=== PATIENT | male | born 1990 | race Caucasian/White ===

== ENCOUNTER 2017-01-15 19:33 | Emergency (ER) | payer BC ==
[2017-01-15 19:39] VITALS: BP 136/88; PULSE 77; RESP 16; TEMP 98.7
[2017-01-15] MEDS ORDERED: IBUPROFEN 600 MG STARTER PACK 4 TAB BTL PO STA (20:20)
--- NOTE | 2017-01-15 20:22 | ED ---
General Adult HPI - General Chief complaint: Extremity Injury, Upper Stated complaint: R side pain Time Seen by Provider: 01/15/17 20:12 Source: patient Mode of arrival: wheelchair Limitations: no limitations - History of Present Illness Initial comments: 26-year-old male patient presents to emergency department today for complaints of right upper arm pain. Patient states that he took a nap this evening, went to adjust himself and felt a sharp pain in his right upper arm. Patient states that he has been playing tennis frequently over the last couple of weeks. States that this is a new sport for him. Patient states he has significant increase in pain with abduction of the arm and any other movements. He states the pain is at 2/10 at rest and increases to a 7/10 with any movement. States the pain is sharp. He denies any numbness or tingling. Denies any known injury. Denies any previous injury to the arm.Patient denies any headache, neck pain, back pain, chest pain, shortness of breath, dizziness, weakness, abdominal pain, nausea, vomiting, or difficulties with bowel movements or urination. - Related Data Previous Rx's Medication Instructions Recorded Ibuprofen 800 mg PO TID PRN #30 tablet 01/15/17 Allergies Allergy/AdvReac Type Severity Reaction Status Date / Time No Known Allergies Allergy Verified 01/15/17 19:39 Review of Systems ROS Statement: Those systems with pertinent positive or pertinent negative responses have been documented in the HPI. ROS Other: All systems not noted in ROS Statement are negative. Past Medical History Past Medical History: No Reported History History of Any Multi-Drug Resistant Organisms: None Reported Past Surgical History: Hernia Repair Past Psychological History: No Psychological Hx Reported Smoking Status: Never smoker Past Alcohol Use History: None Reported Past Drug Use History: Marijuana General Exam Limitations: no limitations General appearance: alert, in no apparent distress, other (Physical well- developed, well-nourished adult male patient in no acute distress. Vital signs upon presentation temperature 98.7F, pulse 77, respirations 16, blood pressure 136/88, pulse ox 100% on room air.) Neck exam: Present: normal inspection, full ROM. Absent: tenderness, meningismus, lymphadenopathy Respiratory exam: Present: normal lung sounds bilaterally. Absent: respiratory distress, wheezes, rales, rhonchi, stridor Cardiovascular Exam: Present: regular rate, normal rhythm, normal heart sounds. Absent: systolic murmur, diastolic murmur, rubs, gallop, clicks Extremities exam: Present: normal inspection, normal capillary refill, other ( Skin to the right upper extremity is pink, warm, and dry. Cap refill is less than 3 seconds. Radial pulse is present and 2+.). Absent: full ROM (Full range of motion however increased pain with abduction, and forward flexion.), tenderness, pedal edema, joint swelling, calf tenderness Back exam: Present: normal inspection. Absent: tenderness, vertebral tenderness Neurological exam: Present: alert, oriented X3, CN II-XII intact Psychiatric exam: Present: normal affect, normal mood Skin exam: Present: warm, dry, intact, normal color. Absent: rash Course Vital Signs 01/15/17 19:37 Temperature 98.7 F Pulse Rate 77 Respiratory 16 Rate Blood Pressure 136/88 O2 Sat by Pulse 100 Oximetry Medical Decision Making - Medical Decision Making 26-year-old male patient presented for evaluation of right upper arm pain. Physical exam was unremarkable. Patient does have increased pain with movement of the shoulder. No shoulder bony tenderness. He did report that he isn't playing tennis frequently over the last couple of weeks which is a new sport for him. Pain is consistent with musculoskeletal injury. He is instructed to take ibuprofen 3 times daily, he will be given a prescription for this. He is instructed to apply warm moist heat to the area. He is instructed to do gentle range of motion exercises. He is instructed to follow-up with his primary care physician for recheck in 1-2 days. He is instructed to return here immediately for any new, worsening, or concerning symptoms. He verbalizes understanding and agrees with this plan. Disposition Clinical Impression: Muscle strain, upper arm Disposition: HOME SELF-CARE Condition: Good Instructions: Muscle Strain (ED) Additional Instructions: Apply warm moist heat to the right upper arm 20 minutes at a time at least 4 times per day. Take anti-inflammatories as directed. Follow up with her primary care physician or orthopedics if symptoms persist beyond 7-10 days. Return here immediately for any new, worsening, or concerning symptoms. Prescriptions: Ibuprofen 800 mg PO TID PRN #30 tablet PRN Reason: Pain Referrals: None,Stated [Primary Care Provider] - 1-2 days Frantz Olson MD [STAFF PHYSICIAN] - 1-2 days Time of Disposition: 20:22
== END 2017-01-15 20:35 | disposition home or self-care (01) ==
LOC: EC 19:33
DX: S46.911A Strain of unspecified muscle, fascia and tendon at shoulder and upper arm level, right arm, initial encounter (principal)
CPT/HCPCS: 99283

== ENCOUNTER → 2018-03-14 | Outpatient (CLI) | payer BC ==
--- NOTE | 2018-03-14 13:38 | EST ---
EXERCISE STRESS DATE OF SERVICE: 03/14/2018 AGE: 27 SEX: Male HT: 68 WT: 189 PROTOCOL: Harpreet STAGE: IV DURATION OF EXERCISE: 11 minutes 30 seconds HEART RATE REST: 75 BLOOD PRESSURE REST: 140/84 MAXIMUM HEART RATE ACHIEVED: 165 MAXIMUM BLOOD PRESSURE: 142/81 85% MPHR: 162 100% MPHR: 191 METS: 12.1 INDICATIONS: Family history. CLINICAL INFORMATION: Baseline rhythm is sinus mechanism, rate of 75, RSR prime, poor R progression. Baseline blood pressure 140/84 mmHg. Patient exercised on Harpreet protocol for 11 minutes 30 seconds reaching a peak rate of 165 beats per minute which is equal to 86% maximum predicted heart rate. Peak blood pressure 142/81 mmHg. Test was terminated secondary to fatigue. There is no chest pain. Electrocardiograph monitoring revealed no evidence of diagnostic ischemic ST deviation. CONCLUSION: 1. Good exercise tolerance with normal electrocardiograph response to exercise. 2. No evidence of arrhythmia. MMODL / IJN: [id number] /
== END | disposition home or self-care (01) ==
LOC: RADNMMAIN 10:43
PROVIDERS: ATTEND Family Medicine
DX: Z13.6 Encounter for screening for cardiovascular disorders (principal); Z82.49 Family history of ischemic heart disease and other diseases of the circulatory system
CPT/HCPCS: 93017

== ENCOUNTER → 2018-11-05 | Outpatient (CLI) | payer BC ==
--- NOTE | 2018-11-06 07:28 | US ---
EXAMINATION TYPE: US thyroid st tissue head/neck DATE OF EXAM: 11/05/2018 COMPARISON: NONE CLINICAL HISTORY: R59.0 Anterior cervical lymphadendopathy,E04.9. FINDINGS/TECHNIQUE: There appears to be an anechoic appears intramuscular on the right measuring 0.8 x 0.4 x 0.8cm. This appears embedded in the muscle belly and does demonstrate increased through transmission compatible w ith cystic nature of this lesion. This is also avascular and smoothly marginated. Peripheral vascular blood flow is noted. The left sternocleidomastoid is scan for comparison without any abnormality see n. IMPRESSION: Subcentimeter cystic mass appears intramuscular and can be sequela of prior trauma and h emorrhage that is evolving. Other etiologies include branchial cleft cyst that appears to be embedded in muscle, lymphangioma, necrotic adenopathy or epidermoid cyst. Anatomic delineation further charac terization could be performed with CTA neck.
== END | disposition home or self-care (01) ==
LOC: RADUSWWP 17:01
PROVIDERS: ATTEND Family Medicine
DX: E04.1 Nontoxic single thyroid nodule (principal); Q18.0 Sinus, fistula and cyst of branchial cleft
CPT/HCPCS: 76536

== ENCOUNTER → 2018-11-21 | Outpatient (CLI) | payer BC ==
--- NOTE | 2018-11-21 10:56 | CT ---
EXAMINATION TYPE: CT angio neck DATE OF EXAM: 11/21/2018 HISTORY: Mass, lump on huber apple area COMPARISON: Ultrasound dated 11/05/2018 CT DLP: 354 mGycm. Automated Exposure Control for Dose Reduction was Utilized. TECHNIQUE: CTA scan of the neck is performed with IV Contrast, patient injected with 50 mL of Isovue 370, axial images are obtained, coronal and sagittal reformatted images are reviewed. Three-D recons tructed images are created on an independent workstation and reviewed. FINDINGS: Carotid/Vascular Structures: No evidence of dissection, aneurysm, significant stenosis or occlusion. 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 Other: No evidence of enhancing lesion within the brain. Visualized paranasal sinuses and mastoid air cells are clear. Osseous structures are grossly unremarkable. Visualized lungs are clear. In the region of the lead marker, there is an ill-defined hypoattenuating lesion seen along the media l right sternohyoid muscle which likely relates to findings on recent ultrasound examination. These f indings are best seen on axial image 55. Evaluation of this area is limited though due to the timing of contrast. IMPRESSION: Limited evaluation due to timing of contrast. However, there appears to be a small ill-defined hypoat tenuating lesion in the medial right sternohyoid muscle which corresponds to ultrasound findings. Ple ase refer to the ultrasound report for differential. If symptoms persist, evaluation with MRI of the area with contrast may be performed.
== END | disposition home or self-care (01) ==
LOC: RADCTMAIN 07:00
PROVIDERS: ATTEND Family Medicine
DX: R22.1 Localized swelling, mass and lump, neck (principal)
CPT/HCPCS: 70498; Q9967

== ENCOUNTER 2019-01-30 12:51 | Day surgery (SDC) | payer SELFPAY ==
[2019-01-30 13:18] VITALS: BP 125/85; PULSE 78; RESP 16; TEMP 98.1
--- NOTE | 2019-01-30 15:40 | US ---
Discontinued fine-needle aspiration HISTORY: Mass Ultrasound performed at the site of patient's palpable abnormality. Correlation to CT angiogram of the neck 11/21/2018, ultrasound neck 11/05/2018 Benign-appearing nodes are present at the site of patient's palpable abnormality. No suspicious mass. Following discussion with the patient, patient elects to defer biopsy at this time. impression: Discontinued fine-needle aspiration.
== END 2019-01-30 14:10 | disposition home or self-care (01) ==
LOC: RADPROMAIN 12:51
PROVIDERS: ATTEND Otolaryngology Plastic Surgery within the Head & Neck
DX: R22.1 Localized swelling, mass and lump, neck (principal)
CPT/HCPCS: 76536

== ENCOUNTER → 2020-05-17 | Outpatient (CLI) | payer OTHER ==
--- NOTE | 2020-05-18 09:17 | US ---
EXAMINATION TYPE: US thyroid st tissue head/neck DATE OF EXAM: 05/17/2020 COMPARISON: US 2019 CLINICAL HISTORY: R22.1 NODULE RT NECK. Right neck palpable lump Right neck at patient's palpable area: 1.7 x 0.4 x 0.9cm lymph node seen Left neck for comparison: 1.9 x 0.6 x 0.8cm lymph node seen This exam is compared with 11/05/2018. Previous cystlike area within the right neck is not identified on the current examination IMPRESSION: 1. Bilateral soft tissue neck lymphadenopathy corresponding to palpable region on right side neck. If additional evaluation is required, CT neck with contrast could be performed.
== END | disposition home or self-care (01) ==
LOC: RADUSWWP 15:28
PROVIDERS: ATTEND Family Medicine
DX: R59.1 Generalized enlarged lymph nodes (principal)
CPT/HCPCS: 76536

== ENCOUNTER → 2020-05-27 | Outpatient (CLI) | payer OTHER ==
--- NOTE | 2020-05-28 07:19 | CT ---
EXAMINATION TYPE: CT soft tissue neck w con DATE OF EXAM: 05/27/2020 COMPARISON: Ultrasound dated 05/17/2020 HISTORY: Right neck mass, pt indicates a LT side concern as well. Both marked by BBs. CT DLP: 509.60 mGycm CONTRAST: CT scan of the neck is performed with IV Contrast, patient injected with 100 mL of Isovue 300. Contrast enhanced CT of the neck was performed from the skull base through the lung apices. Palpable abnormality on the left corresponds to a subcentimeter lymph node measuring approximately 5 mm. The right-sided BB marker corresponds to a right-sided strap muscle without underlying mass lesio n. AIRWAY: The supraglottic, glottic, and subglottic portions of the airway appear patent and free of mass. SALIVARY GLANDS: The submandibular and parotid glands are free of mass or inflammatory process. THYROID GLAND: No nodules or masses seen. LYMPH NODES: No adenopathy seen greater than 1cm. LUNG APICES: No nodule or mass is seen. OTHER: Vascular structures are patent. No significant degenerative change of the cervical spine. N o abscess seen. IMPRESSION: No distinct abnormality at the sites of clinical concern. No adenopathy greater than 1 cm in short ax is.
== END | disposition home or self-care (01) ==
LOC: RADCTMAIN 16:26
PROVIDERS: ATTEND Family Medicine
DX: R22.1 Localized swelling, mass and lump, neck (principal)
CPT/HCPCS: 70491; Q9967

== ENCOUNTER → 2024-02-20 | Outpatient (CLI) | payer BC ==
--- NOTE | 2024-02-20 13:50 | XR ---
EXAMINATION TYPE: XR chest 2V DATE OF EXAM: 02/20/2024 1:36 PM COMPARISON: None TECHNIQUE: XR chest 2V Frontal and lateral views of the chest. CLINICAL INDICATION:Male, 33 years old with history of PRESURGICAL for cervical spine surgery; FINDINGS: Lungs/Pleura: There is no evidence of pleural effusion, focal consolidation, or pneumothorax. Pulmonary vascularity: Unremarkable. Heart/mediastinum: Cardiomediastinal silhouette is unremarkable. Musculoskeletal: No acute osseous pathology. IMPRESSION: No acute cardiopulmonary disease/process. [facility], , 02/20/2024 1:47 PM
[2024-02-20 20:27] LABS: BUN/Creat Ratio 8.78 Ratio (12.00-20.00); Blood Urea Nitrogen 7.9 mg/dL (9.0-27.0); Calcium 9.9 mg/dL (8.7-10.3); Carbon Dioxide 27.1 mmol/L (21.6-31.8); Chloride 102 mmol/L (96-109); Glucose 87 mg/dL (70-110); Potassium 4.3 mmol/L (3.5-5.5); Sodium 141 mmol/L (135-145)
== END | disposition home or self-care (01) ==
LOC: LABWHC1 12:49
PROVIDERS: ATTEND Orthopaedic Surgery Orthopaedic Surgery of the Spine
DX: Z01.818 Encounter for other preprocedural examination (principal)
CPT/HCPCS: 36415; 71046; 80048; 83036; 87070